=== PATIENT | female | born 1935 | race Caucasian/White ===

== ENCOUNTER 2016-12-14 21:37 | Inpatient (IN) | payer MEDICARE ==
[~2016-12-14] VITALS: Ht 157.5 cm; Wt 63.5 kg
--- NOTE | 2016-12-14 22:10 | NUR ---
PT CONFUSED ;UP IN ROOM; ASSISTED BACK TO [place] LANCASTER TO EXAM
[2016-12-14] MEDS ORDERED: [UNRECOGNIZED DRUG - REMARK] (22:11)
[2016-12-14] MEDS ORDERED: [UNRECOGNIZED DRUG - REMARK] (22:11)
--- NOTE | 2016-12-14 23:00 | NUR ---
PT ON MONITOR AND PULSE OX;EKG DONE AND TO DR LANCASTER;IN STARTED LT HAND 20G;PT TO CT SCAN VIA GUERNEY WITH TECH
[2016-12-14 23:03] LABS: BASOPHILS # (AUTO) 0.1 K/uL (0.0-8.0); BASOPHILS % (AUTO) 0.7 % (0.0-2.0); EOSINOPHILS # (AUTO) 0.2 K/uL (0.0-0.7); EOSINOPHILS % (AUTO) 2.3 % (0.0-7.0); HEMATOCRIT 42.4 % (37-47); HEMOGLOBIN 13.9 G/DL (12.0-16.0); LYMPHOCYTES # (AUTO) 3.1 K/UL (0.8-4.8); MEAN CORPUSCULAR HEMOGLOBIN 30.2 UUG (27.0-31.0); MEAN CORPUSCULAR HGB CONC 33 g/dL (32.0-37.0); MEAN CORPUSCULAR VOLUME 92.1 FL (81.0-99.0); MONOCYTES # (AUTO) 0.5 K/UL (0.1-1.30); MONOCYTES % (AUTO) 6.4 % (0.0-11.0); NEUTROPHILS # (AUTO) 4.1 K/UL (1.8-8.9); NEUTROPHILS % (AUTO) 51.6 % (38.5-71.5); PLATELET COUNT (AUTO) 232 K/UL (150-450); RED BLOOD CELL COUNT(AUTO) 4.61 MIL/UL (4.2-5.4)
[2016-12-14 23:11] LABS: *BILIRUBIN,URIN NEGATIVE (NEGATIVE); *BLOOD, URINE NEGATIVE (NEGATIVE); *CLARITY,URINE CLEAR (CLEAR); *COLOR,URINE YELLOW (YELLOW); *KETONES,URINE NEGATIVE (NEGATIVE); *PROTEIN,URINE NEGATIVE (NEGATIVE); *UROBILINOGEN,URINE 0.2 E.U./dl (NORMAL); LEUKOCYTE ESTERASE ,URINE 1+ (NEGATIVE); NITRITE, URINE NEGATIVE (NEGATIVE); PH,URINE 6.5 (5.0-8.0); UGLUCOSE NEGATIVE (NEGATIVE)
[2016-12-14 23:13] LABS: CARBON DIOXIDE 29 mmol/L (21-32); CHLORIDE 105 mmol/L (98-107); CREATININE 0.8 mg/dL (0.6-1.3); GLUCOSE 111 mg/dL (74-106); POTASSIUM 3.6 mmol/L (3.5-5.1); UREA NITROGEN, BLOOD 12 mg/dL (7-18)
[2016-12-14 23:14] LABS: BACTERIA,URINE NONE SEEN /HPF (NONE SEEN); RBC,URINE NONE SEEN /HPF (0-3); SQUAMOUS EPITHELIAL CELL,UR FEW /HPF (NONE SEEN)
[2016-12-14 23:15] LABS: *AMPHETAMINE, URINE NEGATIVE (NEGATIVE); *BARBITURATE, URINE NEGATIVE (NEGATIVE); *CANNABINOID, URINE NEGATIVE (NEGATIVE); *COCCAINE, URINE NEGATIVE (NEGATIVE); *OPIATE, URINE POSITIVE (NEGATIVE); *PHENCYCLIDINE SCREEN,URINE NEGATIVE (NEGATIVE)
--- NOTE | 2016-12-14 23:15 | NUR ---
PT RETURNED FROM CT;ON MONITOT /PULSEOX
[2016-12-14 23:19] LABS: ACETAMINOPHEN < 2.0 ug/mL (10-30); ALANINE AMINOTRANSFERASE 20 U/L (14-59); ALKALINE PHOSPHATASE 46 U/L (50-136); ASPARTATE AMINOTRANSFERASE 15 U/L (15-37); BILIRUBIN,DIRECT 0.1 mg/dL (0.0-0.2); BILIRUBIN,TOTAL 0.4 mg/dL (0.2-1.0); ETHANOL 172 MG/DL (0-0); TOTAL PROTEIN, SERUM 8.1 g/dL (6.4-8.2)
[2016-12-14 23:26] LABS: THYROID STIMULATING HORMONE 2.759 mIU/mL (0.358-3.740)
--- NOTE | 2016-12-14 23:34 | NUR ---
PT UP TO BSC WITH ASSIST TO VOID CLEAR YELLOW URINE 300ML
[2016-12-15] VITALS: BP 124/53
--- NOTE | 2016-12-15 00:01 | NUR ---
DR LANCASTER TO REVIEW ADMIT WITH PT AND SON
--- NOTE | 2016-12-15 00:04 | NUR ---
Call placed to [facility], Hay Evans will be paged.
--- NOTE | 2016-12-15 00:30 | NUR ---
2nd call placed to [facility], Hay Evans will be paged.
--- NOTE | 2016-12-15 00:32 | NUR ---
[place] speaking with Hay Evans.
--- NOTE | 2016-12-15 00:47 | NUR ---
Pt. admitted to [facility], under care of Hay Evans. [place] completed
[2016-12-15] MEDS ORDERED: IV NS 1000 ML 1,000 ML IV PRN ×2 (01:13→13:34)
[2016-12-15] MEDS ORDERED: MAGNESIUM HYDROXIDE 30 ML LIQUID UDC PO PRN (01:15)
[2016-12-15] MEDS ORDERED: CEFTRIAXONE 1 G in IV DEXTROSE 5% 50 ML IV SCH (01:15)
[2016-12-15] MEDS ORDERED: ONDANSETRON 4 MG/2 ML VIAL IV PRN (01:15)
[2016-12-15 04:00] VITALS: BP 149/50
[2016-12-15 06:30] LABS: MAGNESIUM 1.9 mg/dL (1.8-2.4); PHOSPHOROUS 3.6 mg/dL (2.5-4.9)
--- NOTE | 2016-12-15 06:50 | NUR ---
PT SLEPT INTERMITTENTLY THROUGH THE NIGHT AND WAS EASILY AWOKEN, PT DENIED HAVING PAIN OR DIFFICULTY BREATHING, PT WAS INTERMITTENTLY CONFUSED, SHE WOULD FORGET WHERE SHE WAS AND WHAT HAPPENED, ONCE SHE WAS REORIENTED PT WAS ABLE TO REMEMBER THE EVENTS OF THE DAY. ALL NEEDS MET, SAFETY MEASURES ARE IN PLACE, CALL LIGHT WITHIN REACH, BED ALARM IS ON.
[2016-12-15] MEDS: FAMOTIDINE 20 MG TABLET PO SCH (08:50)
[2016-12-15] MEDS: CEFTRIAXONE 1 G in IV DEXTROSE 5% 50 ML IV SCH (09:32)
--- NOTE | 2016-12-15 10:47 | NUR ---
PATIENT IS SEEN BY RANDY MULTIPLE COIL WINDER WITH NEW ORDERS AND NOTED.
--- NOTE | 2016-12-15 11:00 | NUR ---
2 D ECHO COMPLETED ORDERED WITH 60% EF.
[2016-12-15 11:33] LABS: BASOPHILS # (AUTO) 0.1 K/uL (0.0-8.0); BASOPHILS % (AUTO) 0.7 % (0.0-2.0); EOSINOPHILS # (AUTO) 0.1 K/uL (0.0-0.7); EOSINOPHILS % (AUTO) 0.8 % (0.0-7.0); HEMATOCRIT 40.2 % (37-47); HEMOGLOBIN 13.6 G/DL (12.0-16.0); LYMPHOCYTES # (AUTO) 1.3 K/UL (0.8-4.8); LYMPHOCYTES % (AUTO) 18.5 % (20.5-51.5); MEAN CORPUSCULAR HEMOGLOBIN 31.3 UUG (27.0-31.0); MEAN CORPUSCULAR HGB CONC 34 g/dL (32.0-37.0); MEAN CORPUSCULAR VOLUME 92.8 FL (81.0-99.0); MONOCYTES # (AUTO) 0.4 K/UL (0.1-1.30); MONOCYTES % (AUTO) 5.4 % (0.0-11.0); NEUTROPHILS # (AUTO) 5.3 K/UL (1.8-8.9); NEUTROPHILS % (AUTO) 74.6 % (38.5-71.5); PLATELET COUNT (AUTO) 228 K/UL (150-450); RED BLOOD CELL COUNT(AUTO) 4.33 MIL/UL (4.2-5.4); WHITE BLOOD COUNT (AUTO) 7.2 K/UL (4.0-11.2)
[2016-12-15 11:41] VITALS: BP 153/58
[2016-12-15 11:42] LABS: ALANINE AMINOTRANSFERASE 18 U/L (14-59); ALKALINE PHOSPHATASE 45 U/L (50-136); ASPARTATE AMINOTRANSFERASE 18 U/L (15-37); BILIRUBIN,TOTAL 0.6 mg/dL (0.2-1.0); CARBON DIOXIDE 29 mmol/L (21-32); CHLORIDE 105 mmol/L (98-107); CREATININE 0.7 mg/dL (0.6-1.3); GLUCOSE 102 mg/dL (74-106); POTASSIUM 4.5 mmol/L (3.5-5.1); TOTAL PROTEIN, SERUM 7.7 g/dL (6.4-8.2); UREA NITROGEN, BLOOD 10 mg/dL (7-18)
[2016-12-15] MEDS: LORAZEPAM 2 MG/1 ML VIAL IV PRN (12:59)
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
--- NOTE | 2016-12-15 14:00 | NUR ---
PATIENTS SON JONNATHAN IS HERE AND AWARE OF HIS MOMS AGITATION AND RESTLESSNESS.
[2016-12-15] MEDS: FOLIC ACID 1 MG TABLET PO SCH (15:05)
[2016-12-15] MEDS: THIAMINE HCL 100 MG TABLET PO SCH (15:05)
[2016-12-15] MEDS: MULTIVITAMINS,THERAPEUTIC TABLET PO SCH (15:05)
[2016-12-15] MEDS: AMLODIPINE 5 MG TABLET PO SCH (15:06)
[2016-12-15 15:22] VITALS: BP 115/57
--- NOTE | 2016-12-15 15:30 | NUR ---
CALLED [facility] RE PATIENT HAS NO ORDER FOR C/S OF URINE AND HAS POSITIVE URINALYSIS AND IS CURRENTLY ON ROCEPHIN AND SHE STATED TO ASK THE LAB IF POSSIBLE TO USE THE URINE IN THE LAB TO START THE CULTURE.CALLED THE LAD SPOKE WITH ELIEZER STATED SHE HAS THE URINE AND WILL START THE CULTURE.
--- NOTE | 2016-12-15 16:21 | NUR ---
PATIENT SEEN AND EWXAMINED BY DR HAMILTON WITH NEW ORDERS AND NOTED.
--- NOTE | 2016-12-15 17:00 | NUR ---
PATIENT MOVED FROM ROOM 218 TO ROOM 208 TO BE CLOSER TO THE STATION DUE TO THE FACT SHE IS CONFUSED AT RISKS FOR FALLS AND INJURIES RELATED TO POOR SAFETY AWARENESS.SON JONNATHAN AWARE
--- NOTE | 2016-12-15 17:35 | NUR ---
PATIENT PULLED OUT HER HEPLOCK AT THIS TIME STATED THAT SHE DOES KNOW WHY ITS THERE WILL ATTEMPT TO REINSERT LATER.
--- NOTE | 2016-12-15 18:46 | NUR ---
REINSERTED NUMBER 20 ANGIO TO HER LEFT FOREARM WITH ONE ATTEMPT AND WRAPPED WITH KIRLIX FOR PROTECTION.PATIENT EDUCATED THAT SHE NEEDS TO LEAVE THE HEPLOCK IN PLACE SO THAT SHE CAN GET HER IV MEDICATIONS ORDERED AND SHE STATED THAT SHE DID NOT MEAN TO REMOVE THE LINE IN THE FIRST PLACE AND WILL CONTINUE TO OBSERVE.
[2016-12-15 20:18] VITALS: BP 105/53
[2016-12-15] MEDS: ATORVASTATIN 20 MG TABLET PO SCH (20:36)
[2016-12-15 23:52] VITALS: BP 165/62
[2016-12-16] VITALS (7 sets, daily range): BP systolic 132–163; BP diastolic 55–83
[2016-12-16] MEDS: hydrALAZINE HCL 25 MG TABLET PO PRN (00:06)
--- NOTE | 2016-12-16 00:06 | NUR ---
Elevated BP 165/ 62. Given hydralazine as ordered. will monitor.
--- NOTE | 2016-12-16 06:23 | NUR ---
BP WENT DOWN TO 132/55. PT SLEPT MOST SHIFT. NO S/S AGITATION. SINUS MAC ON TELE HR 56 AT THIS TIME. LOWEST HR 42 NOT SUSTAINED.
[2016-12-16 06:49] LABS: ALANINE AMINOTRANSFERASE 16 U/L (14-59); ALKALINE PHOSPHATASE 45 U/L (50-136); ASPARTATE AMINOTRANSFERASE 13 U/L (15-37); BILIRUBIN,TOTAL 1.1 mg/dL (0.2-1.0); CARBON DIOXIDE 28 mmol/L (21-32); CHLORIDE 106 mmol/L (98-107); CREATINE KINASE, TOTAL 54 U/L (26-192); CREATININE 0.6 mg/dL (0.6-1.3); GLUCOSE 105 mg/dL (74-106); MAGNESIUM 2.1 mg/dL (1.8-2.4); PHOSPHOROUS 3.1 mg/dL (2.5-4.9); POTASSIUM 3.7 mmol/L (3.5-5.1); TOTAL PROTEIN, SERUM 7.4 g/dL (6.4-8.2); UREA NITROGEN, BLOOD 8 mg/dL (7-18)
[2016-12-16 06:55] LABS: BASOPHILS # (AUTO) 0.1 K/uL (0.0-8.0); EOSINOPHILS # (AUTO) 0.1 K/uL (0.0-0.7); EOSINOPHILS % (AUTO) 1.3 % (0.0-7.0); HEMATOCRIT 40.8 % (31.2-41.9); LYMPHOCYTES # (AUTO) 1.3 K/uL (20.0-40.0); MEAN CORPUSCULAR HEMOGLOBIN 31.4 uug (24.7-32.8); MEAN CORPUSCULAR HGB CONC 34 g/dL (32.3-35.6); MEAN CORPUSCULAR VOLUME 91.8 fL (75.5-95.3); MONOCYTES # (AUTO) 0.5 K/uL (2.0-10.0); NEUTROPHILS # (AUTO) 3.8 K/uL (1.8-8.9); NEUTROPHILS % (AUTO) 65.7 % (38.5-71.5); PLATELET COUNT (AUTO) 205 K/uL (179-408); RED BLOOD CELL COUNT(AUTO) 4.45 MIL/uL (3.63-4.92); WHITE BLOOD COUNT (AUTO) 5.8 K/uL (3.8-11.8)
--- NOTE | 2016-12-16 07:30 | NUR ---
pt received laying in bed, no acute distress noted. Pt on tele monitor, a-fib controlled. Pleasant upon approach. on room air o2 sat WNL. Pt is cooperative, stating "I feel fine and hopefully i can go home". Bed is in low and locked position, call light within reach. Will continue to monitor.
[2016-12-16] MEDS: AMLODIPINE 5 MG TABLET PO SCH ×2 (08:36→20:32)
[2016-12-16] MEDS: FOLIC ACID 1 MG TABLET PO SCH (08:36)
[2016-12-16] MEDS: FAMOTIDINE 20 MG TABLET PO SCH (08:36)
[2016-12-16] MEDS: ASPIRIN 81 MG TAB.CHEW PO SCH (08:36)
[2016-12-16] MEDS: THIAMINE HCL 100 MG TABLET PO SCH (08:36)
[2016-12-16] MEDS: MULTIVITAMINS,THERAPEUTIC TABLET PO SCH (08:36)
[2016-12-16] MEDS: CEFTRIAXONE 1 G in IV DEXTROSE 5% 50 ML IV SCH (10:22)
[2016-12-16] MEDS ORDERED: hydrALAZINE HCL 25 MG TABLET PO PRN (13:00)
--- NOTE | 2016-12-16 14:12 | NUR ---
pt noted to be confused, observed walking to other pt room, stating "I know what room i'm in", pt had to be redirected. Comfort measures provided.
--- NOTE | 2016-12-16 15:31 | NUR ---
Pt has DVT pumps but refusing to wear at this time. Education provided.
--- NOTE | 2016-12-16 16:52 | NUR ---
Pt sitting up in bed watching TV. Pt son at bedside. No acute distress noted.
[2016-12-16] MEDS: LORAZEPAM 2 MG/1 ML VIAL IV PRN (17:59)
--- NOTE | 2016-12-16 19:30 | NUR ---
PT IN BED, AWAKE, ALERT TO SELF, WITH PERIODS OF CONFUSION. NO ACUTE SIGNS OF DISTRESS. ON FALL RISK, BED ALARM ON.
[2016-12-16] MEDS: ATORVASTATIN 20 MG TABLET PO SCH (20:32)
[2016-12-16] MEDS ORDERED: LORAZEPAM 2 MG/1 ML VIAL IV ONE (21:00)
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
[2016-12-17 04:00] VITALS: BP 127/63
--- NOTE | 2016-12-17 05:47 | NUR ---
ON 1:1 SITTER FOR SAFETY. STILL CONFUSED. SLEPT INTERMITTENTLY. IN NO ACUTE SIGNS OF DISTRESS. SAFETY NEEDS RENDERED.
[2016-12-17 06:46] LABS: BASOPHILS # (AUTO) 0.1 K/uL (0.0-8.0); BASOPHILS % (AUTO) 0.7 % (0.0-2.0); EOSINOPHILS # (AUTO) 0.1 K/uL (0.0-0.7); EOSINOPHILS % (AUTO) 1.2 % (0.0-7.0); HEMATOCRIT 43.7 % (37-47); HEMOGLOBIN 14.9 G/DL (12.0-16.0); LYMPHOCYTES % (AUTO) 26.4 % (20.5-51.5); MEAN CORPUSCULAR HEMOGLOBIN 31.4 UUG (27.0-31.0); MEAN CORPUSCULAR HGB CONC 34 g/dL (32.0-37.0); MEAN CORPUSCULAR VOLUME 92.1 FL (81.0-99.0); MONOCYTES # (AUTO) 0.6 K/UL (0.1-1.30); MONOCYTES % (AUTO) 7.5 % (0.0-11.0); NEUTROPHILS # (AUTO) 4.7 K/UL (1.8-8.9); NEUTROPHILS % (AUTO) 64.2 % (38.5-71.5); PLATELET COUNT (AUTO) 249 K/UL (150-450); RED BLOOD CELL COUNT(AUTO) 4.74 MIL/UL (4.2-5.4); WHITE BLOOD COUNT (AUTO) 7.5 K/UL (4.0-11.2)
[2016-12-17 07:00] LABS: CARBON DIOXIDE 26 mmol/L (21-32); CHLORIDE 105 mmol/L (98-107); CREATININE 0.6 mg/dL (0.6-1.3); GLUCOSE 102 mg/dL (74-106); POTASSIUM 3.6 mmol/L (3.5-5.1); UREA NITROGEN, BLOOD 10 mg/dL (7-18)
[2016-12-17 07:01] LABS: ALANINE AMINOTRANSFERASE 18 U/L (14-59); ALKALINE PHOSPHATASE 48 U/L (50-136); ASPARTATE AMINOTRANSFERASE 13 U/L (15-37); BILIRUBIN,TOTAL 1.3 mg/dL (0.2-1.0); PHOSPHOROUS 3.6 mg/dL (2.5-4.9); TOTAL PROTEIN, SERUM 7.8 g/dL (6.4-8.2)
--- NOTE | 2016-12-17 08:00 | NUR ---
awake forgetful but able to follow SIMPLE DIRECTION WELL ON FALL PRECAUTION BED ALARM ON AND SITTER 1:1 AT BEDSIDE EAT BREAKFAST 50% OF TRAY PO FLD ENC BOYD MOD AMT NO PAIN OR SOB
[2016-12-17] MEDS: MULTIVITAMINS,THERAPEUTIC TABLET PO SCH (08:24)
[2016-12-17] MEDS: THIAMINE HCL 100 MG TABLET PO SCH (08:24)
[2016-12-17] MEDS: FOLIC ACID 1 MG TABLET PO SCH (08:24)
[2016-12-17] MEDS: AMLODIPINE 5 MG TABLET PO SCH ×2 (08:24→20:08)
[2016-12-17] MEDS: ASPIRIN 81 MG TAB.CHEW PO SCH (08:24)
[2016-12-17] MEDS: FAMOTIDINE 20 MG TABLET PO SCH (08:24)
[2016-12-17] MEDS: CEFTRIAXONE 1 G in IV DEXTROSE 5% 50 ML IV SCH (10:01)
[2016-12-17] MEDS ORDERED: POTASSIUM CHLORIDE 20 MEQ POWDER PACKET PO ONE (10:45)
[2016-12-17 11:18] VITALS: BP 136/58
[2016-12-17] MEDS: ACETAMINOPHEN 325 MG TABLET PO PRN ×2 (11:50→20:06)
[2016-12-17] MEDS: CEPHALEXIN MONOHYDRATE 500 MG CAPSULE PO SCH ×2 (13:59→22:02)
[2016-12-17 15:37] VITALS: BP 133/52
--- NOTE | 2016-12-17 17:00 | NUR ---
SAME CONDITION NO ACUTE DISTRESS SAFETY MEASURE PROVIDED BED ALARM ON AND SITTER 1:1 AT BEDSIDE
[2016-12-17] MEDS: LORAZEPAM 2 MG/1 ML VIAL IV PRN (19:07)
[2016-12-17 20:00] VITALS: BP 136/68
[2016-12-17] MEDS: ATORVASTATIN 20 MG TABLET PO SCH (20:06)
[2016-12-18] MEDS: CEPHALEXIN MONOHYDRATE 500 MG CAPSULE PO SCH ×2 (05:37→12:28)
--- NOTE | 2016-12-18 05:58 | NUR ---
PT SLEPT WELL, IN NO ACUTE DISTRESS, NO SIGNIFICANT CHANGE OF CONDITION THROUGHOUT THE SHIFT. SAFETY MEASURES IN PLACE, 1:1 SITTER PROVIDED. WILL CONTINUE TO MONITOR AND ENDORSE TO THE ONCOMING SHIFT RN.
[2016-12-18 06:00] VITALS: BP 129/63
--- NOTE | 2016-12-18 08:00 | NUR ---
AWAKE FORGETFUL /CONFUSED NO PAIN OR SOB ON FALL PRECAUTION BED ALARM ON AND CALL LIGHT WITHIN REACH AND SITTER 1:1 AT BEDSIDE FOR SAFETY
[2016-12-18 08:41] LABS: BASOPHILS # (AUTO) 0.1 K/uL (0.0-8.0); BASOPHILS % (AUTO) 0.9 % (0.0-2.0); EOSINOPHILS # (AUTO) 0.1 K/uL (0.0-0.7); EOSINOPHILS % (AUTO) 1.2 % (0.0-7.0); HEMOGLOBIN 15.5 g/dL (10.9-14.3); LYMPHOCYTES # (AUTO) 1.8 K/uL (20.0-40.0); MEAN CORPUSCULAR HEMOGLOBIN 31.9 uug (24.7-32.8); MEAN CORPUSCULAR HGB CONC 35 g/dL (32.3-35.6); MEAN CORPUSCULAR VOLUME 92.5 fL (75.5-95.3); MONOCYTES # (AUTO) 0.5 K/uL (2.0-10.0); MONOCYTES % (AUTO) 7.6 % (0.0-11.0); NEUTROPHILS # (AUTO) 4.2 K/uL (1.8-8.9); NEUTROPHILS % (AUTO) 63.3 % (38.5-71.5); PLATELET COUNT (AUTO) 202 K/uL (179-408); RED BLOOD CELL COUNT(AUTO) 4.87 MIL/uL (3.63-4.92); WHITE BLOOD COUNT (AUTO) 6.6 K/uL (3.8-11.8)
[2016-12-18 08:45] LABS: ALANINE AMINOTRANSFERASE 19 U/L (14-59); ALKALINE PHOSPHATASE 49 U/L (50-136); ASPARTATE AMINOTRANSFERASE 18 U/L (15-37); BILIRUBIN,TOTAL 0.9 mg/dL (0.2-1.0); CARBON DIOXIDE 26 mmol/L (21-32); CHLORIDE 104 mmol/L (98-107); CREATININE 0.6 mg/dL (0.6-1.3); GLUCOSE 103 mg/dL (74-106); MAGNESIUM 2.1 mg/dL (1.8-2.4); PHOSPHOROUS 3.7 mg/dL (2.5-4.9); POTASSIUM 4.5 mmol/L (3.5-5.1); TOTAL PROTEIN, SERUM 8.1 g/dL (6.4-8.2); UREA NITROGEN, BLOOD 8 mg/dL (7-18)
[2016-12-18] MEDS: THIAMINE HCL 100 MG TABLET PO SCH (08:53)
[2016-12-18] MEDS: ACETAMINOPHEN 325 MG TABLET PO PRN (08:53)
[2016-12-18] MEDS: FAMOTIDINE 20 MG TABLET PO SCH (08:53)
[2016-12-18] MEDS: ASPIRIN 81 MG TAB.CHEW PO SCH (08:53)
[2016-12-18] MEDS: FOLIC ACID 1 MG TABLET PO SCH (08:53)
[2016-12-18] MEDS: MULTIVITAMINS,THERAPEUTIC TABLET PO SCH (08:53)
[2016-12-18] MEDS: AMLODIPINE 5 MG TABLET PO SCH (08:54)
[2016-12-18 09:00] VITALS: BP 135/65
[2016-12-18 11:58] VITALS: BP 160/64
--- NOTE | 2016-12-18 12:00 | NUR ---
[employer] MAKER RANDY BENNETT SEE PT AND LAB RESULT AND NEW ORDER IN CHART
[2016-12-18] MEDS ORDERED: CEPH500C2 PO (12:15)
[2016-12-18] MEDS ORDERED: THIA100T13 PO (12:15)
[2016-12-18] MEDS ORDERED: ATOR20TA PO (12:15)
[2016-12-18] MEDS ORDERED: AMLO5TAB2 PO (12:15)
[2016-12-18] MEDS ORDERED: FAMO20TA8 PO (12:15)
[2016-12-18] MEDS ORDERED: ACET325T53 PO (12:15)
[2016-12-18] MEDS ORDERED: FOLI1TAB16 PO (12:15)
[2016-12-18] MEDS ORDERED: LACT1CAP59 PO (12:15)
[2016-12-18] MEDS ORDERED: MULT-24 PO (12:15)
[2016-12-18] MEDS ORDERED: ASPI81TA31 PO (12:15)
[2016-12-18] MEDS: hydrALAZINE HCL 25 MG TABLET PO PRN (12:29)
[2016-12-18 13:13] LABS: HEMATOCRIT 42.6 % (31.2-41.9); HEMOGLOBIN 14.8 g/dL (10.9-14.3)
[2016-12-18 14:00] VITALS: BP 121/55
--- NOTE | 2016-12-18 14:00 | NUR ---
HB/HCT REPEAT RESULT INFORM TO MACHINE FITTER AND ALSO RECHECK BP IN CHART
--- NOTE | 2016-12-18 15:00 | NUR ---
D/ C INSTRUCTION REGARDING F/U WITH OWN PMD CONTINUE HOME MEDICINE AND EDUCATION PK GAVE TO PATIENT AND SON ,VERBALIZES UNDERSTAND AND SIGNS D/C SHEET HL WAS DISCONTINUE PRIOR D/C HOME TODAY
--- NOTE | 2016-12-18 15:00 | NUR ---
EXPLAINED ALL HOME MEDICATION TO PATIENT SON ,VERBALIZES UNDERSATAND , REFUSED PHAMACY TO COME
--- NOTE | 2016-12-18 15:20 | NUR ---
d/c home with her belonging accompanies with SON CONDITION STABLE
== END 2016-12-18 15:20 | disposition home health service (06) | DRG 896 ==
LOC: ER 21:38 → EDBD 21:38 → TELE 12-15 00:05 → MED 12-17 12:28
PROVIDERS: ADMIT Nurse Practitioner Acute Care; ATTEND Internal Medicine
DX: F10.129 Alcohol abuse with intoxication, unspecified (principal); G92 Toxic encephalopathy; I27.20 Pulmonary hypertension, unspecified; I48.2 Chronic atrial fibrillation; D75.1 Secondary polycythemia; I36.1 Nonrheumatic tricuspid (valve) insufficiency; G40.909 Epilepsy, unspecified, not intractable, without status epilepticus; M48.02 Spinal stenosis, cervical region; E78.5 Hyperlipidemia, unspecified; N39.0 Urinary tract infection, site not specified; R55 Syncope and collapse; E80.6 Other disorders of bilirubin metabolism; F03.90 Unspecified dementia, unspecified severity, without behavioral disturbance, psychotic disturbance, mood disturbance, and anxiety; G89.29 Other chronic pain; W18.30XA Fall on same level, unspecified, initial encounter; Z86.73 Personal history of transient ischemic attack (TIA), and cerebral infarction without residual deficits; I11.9 Hypertensive heart disease without heart failure; I35.1 Nonrheumatic aortic (valve) insufficiency; I34.0 Nonrheumatic mitral (valve) insufficiency; Y93.9 Activity, unspecified; Y92.009 Unspecified place in unspecified non-institutional (private) residence as the place of occurrence of the external cause; M50.30 Other cervical disc degeneration, unspecified cervical region; T51.0X1A Toxic effect of ethanol, accidental (unintentional), initial encounter; Y90.6 Blood alcohol level of 120-199 mg/100 ml; R73.9 Hyperglycemia, unspecified; M46.02 Spinal enthesopathy, cervical region
CPT/HCPCS: 36415; 70450; 71010; 72125; 80307; 83735; 84100; 84443; 85018; 85025; 85730; 87086; 93005; 93307; A4663; G0480; G0480-TC; J0696; J2060; J7030; J7060

== ENCOUNTER 2018-03-27 20:01 | Emergency (ER) | payer MEDICARE ==
[~2018-03-27] VITALS: Ht 167.6 cm; Wt 68.0 kg
[~2018-03-27 20:01] MED LIST: ACET325T53 PO; AMLO5TAB9 PO; ASPI81TA31 PO; ATOR20TA PO; CEPH500C2 PO; FAMO20TA8 PO; FOLI1TAB16 PO; LACT1CAP59 PO; MULT-24 PO; THIA100T13 PO
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
[2018-03-27] MEDS ORDERED: NEOMY/BACITRA/POLYMYXIN B OINT UD PACKET TP ONE ×2 (20:27→20:30)
[2018-03-27] MEDS ORDERED: ACETAMINOPHEN ES 500 MG TABLET ONE (20:27)
[2018-03-27] MEDS ORDERED: ACETAMINOPHEN ES 500 MG TABLET PO ONE (20:30)
--- NOTE | 2018-03-27 20:43 | NUR ---
Pt went down to radiology dept for xray & CT scan.
--- NOTE | 2018-03-27 21:03 | NUR ---
Pt back from radiology dept back in room 2A.
[2018-03-27] MEDS ORDERED: MORPHINE SULFATE 4 MG/1 ML DISP.SYRIN IM ONE (21:15)
[2018-03-27] MEDS ORDERED: ONDANSETRON 4 MG/2 ML VIAL IM ONE (21:15)
[2018-03-27] MEDS ORDERED: ONDANSETRON 4 MG/2 ML VIAL ONE (21:16)
[2018-03-27] MEDS ORDERED: MORPHINE SULFATE 4 MG/1 ML DISP.SYRIN ONE (21:16)
--- NOTE | 2018-03-27 22:07 | NUR ---
Patient discharged to home in stable conditon. Written and verbal after care instructions given to patient and caregiver. Patient and caregiver verbalize understanding of instructions. Instructed patient not to drive. Patient able to ambulate out of dept with steady gait.
--- NOTE | 2018-03-27 22:07 | NUR ---
HAD ER WHEAT GROWER CALL FOR TAXI, patient stated that they will just walk home. Home is a block away. Strongly advised patient to take taxi. Patient and caregiver understood instructions.
[2018-03-27 22:11] VITALS: BP 152/85
== END 2018-03-27 22:10 | disposition home or self-care (01) ==
LOC: ER 20:01 → EDBD 20:01 → ER 22:10
DX: S42.212A Unspecified displaced fracture of surgical neck of left humerus, initial encounter for closed fracture (principal); S00.83XA Contusion of other part of head, initial encounter; I48.91 Unspecified atrial fibrillation; Z79.82 Long term (current) use of aspirin; Z79.899 Other long term (current) drug therapy; W01.0XXA Fall on same level from slipping, tripping and stumbling without subsequent striking against object, initial encounter; Y93.89 Activity, other specified; Y92.89 Other specified places as the place of occurrence of the external cause; Y99.8 Other external cause status
CPT/HCPCS: 29105; 70450; 72125; 73030; 73080; 96372 ×2; 99284; J2270; J2405; A4663; A9150